=== PATIENT | female | born 1970 | race Two or more races ===

== ENCOUNTER 2017-04-21 16:35 | Emergency (ER) | payer OTHER ==
[~2017-04-21] VITALS: Ht 165.1 cm; Wt 101.6 kg
[~2017-04-21 16:35] MED LIST: BACTRIM DS TAB1 EAC1 ORAL; IBUPROFEN200 MG ORAL; IBUPROFEN600 MG PO; KEFLEX500 MG ORAL; NKM; ULTRAM50 MG ORAL
[2017-04-21 16:42] VITALS: BP 145/94
--- NOTE | 2017-04-21 16:58 | Emergency Room Report ---
History of Present Illness General Chief Complaint: Laceration Source: Patient Present Illness HPI Patient is a 46-year-old female who presents today for a laceration to her right thumb. Patient states she was cutting a box when she accidentally cut her finger. She states she is currently 7-10 in severity and she hasn't taken medication for her. She notes her last tetanus shot was 2 years ago. She denies any numbness, tingling, loss of sensation. Allergies: Coded Allergies: No Known Allergies (Unverified , 10/17/12) Patient History Last Menstrual Period: na Reviewed Nursing Documentation: PMH: Agreed, PSxH: Agreed Nursing Documentation-PMH Past Medical History: No History, Except For Hx Gastrointestinal Problems: No - Uterine fibroid Review of Systems Skin: Reports: other - laceration finger Physical Exam Vital Signs Date Time Temp Pulse Resp B/P (MAP) Pulse Ox O2 Delivery O2 Flow Rate FiO2 04/21/17 16:42 98.2 83 18 145/94 98 Room Air Sp02 EP Interpretation: reviewed, normal General Appearance: no apparent distress, alert, GCS 15, non-toxic Head: normocephalic, atraumatic Eyes: bilateral eye normal inspection, bilateral eye PERRL ENT: hearing grossly normal, normal pharynx, no angioedema, normal voice Neck: full range of motion, supple/symm/no masses Respiratory: chest non-tender, lungs clear, normal breath sounds, speaking full sentences Cardiovascular #1: regular rate, rhythm, no edema Cardiovascular #2: 2+ carotid (R), 2+ carotid (L), 2+ radial (R), 2+ radial (L) , 2+ dorsalis pedis (R), 2+ dorsalis pedis (L) Gastrointestinal: normal bowel sounds, non tender, soft, non-distended, no guarding, no rebound Rectal: deferred Genitourinary: normal inspection, no CVA tenderness Musculoskeletal: back normal, gait/station normal, normal range of motion, non- tender, calf tenderness, other - FOM at all joints, no tendon involvement Neurologic: alert, oriented x3, responsive, motor strength/tone normal, sensory intact, speech normal Psychiatric: judgement/insight normal, memory normal, mood/affect normal, no suicidal/homicidal ideation Reflexes: 3+ bicep (R), 3+ bicep (L), 3+ tricep (R), 3+ tricep (L), 3+ knee (R) , 3+ knee (L) Skin: normal color, no rash, warm/dry, well hydrated, other - 3cm laceration to palmar aspect of right thumb Lymphatic: no adenopathy Procedures Laceration/Wound Repair Laceration/Wound Repair : Consent: Verbal Wound Location: upper extremity Wound's Depth, Shape: superficial Wound Explored: clean Irrigated w/ Saline (ccs): 100 Betadine Prep?: Yes Anesthesia: 1% Lidocaine Volume Anesthetic (ccs): 7 Wound Debrided: minimal Wound Repaired With: sutures Suture Size/Type: 4:0 Layer Closure?: No Sterile Dressing Applied?: Yes Splint Applied?: No Sling Applied?: No Patient Tolerated: Well Complications: None Medical Decision Making PA Attestation Supervising physician Dr. gross Diagnostic Impression: Primary Impression: Laceration of thumb ER Course Lacerations repaired, patient tolerated procedure well. No evidence of tendon involvement. Patient educated about the risk of scarring and understands. Patient informed of wound care instructions return in 7-10 days for suture removal. Patient understands and is agreeable with plan Last Vital Signs Date Time Temp Pulse Resp B/P (MAP) Pulse Ox O2 Delivery O2 Flow Rate FiO2 04/21/17 16:42 98.2 83 18 145/94 98 Room Air Status: improved Disposition: HOME, SELF-CARE Condition: Stable Patient Instructions: Laceration Care, Adult Liane Degroot Apr 21, 2017 16:58
[2017-04-21] MEDS ORDERED: Lidocaine 1% Plain 30 ml INJ ONE (17:00)
[2017-04-21] MEDS ORDERED: Bacitracin Oint UD TOPIC ONE ×2 (17:24→17:45)
== END 2017-04-21 17:37 | disposition home or self-care (01) ==
LOC: EMR 16:58
DX: S61.011A Laceration without foreign body of right thumb without damage to nail, initial encounter (principal); W27.5XXA Contact with paper-cutter, initial encounter; Y92.89 Other specified places as the place of occurrence of the external cause
CPT/HCPCS: 12001; 99283; J2001; Z7502

== ENCOUNTER 2017-05-06 10:38 | Emergency (ER) | payer OTHER ==
[~2017-05-06] VITALS: Ht 165.1 cm; Wt 99.8 kg
[2017-05-06 10:46] VITALS: BP 128/90
[2017-05-06 11:10] VITALS: BP 128/90
--- NOTE | 2017-05-06 12:24 | Emergency Room Report ---
History of Present Illness General Chief Complaint: Wound Recheck/Suture Removal Source: Patient Present Illness HPI 46-year-old female presents to ED for suture removal. Patient had sutures placed on her right 2 weeks ago. Is here to have the sutures removed. Denies any pain. Denies any fevers or chills. States the wound is well-healed and has no complaints. No other aggravating relieving factors. No other associated symptoms Allergies: Coded Allergies: No Known Allergies (Unverified , 10/17/12) Patient History Past Medical History: none Past Surgical History: none Pertinent Family History: none Social History: Denies: smoking, alcohol use, drug use Now: No Immunizations: UTD Reviewed Nursing Documentation: PMH: Agreed, PSxH: Agreed Nursing Documentation-PMH Hx Gastrointestinal Problems: No - Uterine fibroid Review of Systems All Other Systems: negative except mentioned in HPI Physical Exam Vital Signs Date Time Temp Pulse Resp B/P (MAP) Pulse Ox O2 Delivery O2 Flow Rate FiO2 05/06/17 10:40 97.9 76 16 128/90 98 Sp02 EP Interpretation: reviewed, normal General Appearance: no apparent distress, alert, GCS 15, non-toxic Head: normocephalic Eyes: bilateral eye normal inspection, bilateral eye PERRL ENT: normal ENT inspection Neck: normal inspection Respiratory: normal inspection Cardiovascular #1: normal inspection Gastrointestinal: normal inspection Rectal: deferred Genitourinary: no CVA tenderness Musculoskeletal: normal inspection Neurologic: alert, oriented x3, responsive, motor strength/tone normal, sensory intact, speech normal Psychiatric: normal inspection Skin: other - laceration well healed. sutures in place. no induration/erythema Lymphatic: normal inspection Medical Decision Making Diagnostic Impression: Primary Impression: Encounter for removal of sutures ER Course Patient presents to the emergency department today for suture removal. patient' s wound appears well-healed, and sutures are ready to be removed today. Using sterile technique the sutures were removed patient tolerated procedure well without any difficulty. Patient was given device in how to care for the wound patient is advised followup with his private care doctor in 2-3 days and return to emergency room for any worsening conditions as needed Last Vital Signs Date Time Temp Pulse Resp B/P (MAP) Pulse Ox O2 Delivery O2 Flow Rate FiO2 05/06/17 11:10 97.9 16 128/90 98 05/06/17 10:40 76 Status: improved Disposition: HOME, SELF-CARE Condition: Stable Referrals: [employer] [facility] AMRIK HAYWOOD (PCP) Patient Instructions: Suture Removal, Care After APRYL BELL M.D. May 06, 2017 12:24
== END 2017-05-06 11:10 | disposition home or self-care (01) ==
LOC: EMR 10:59
DX: S61.011D Laceration without foreign body of right thumb without damage to nail, subsequent encounter (principal); W45.8XXD Other foreign body or object entering through skin, subsequent encounter; Z48.02 Encounter for removal of sutures
CPT/HCPCS: 99281